=== PATIENT | male | born 1980 | race Hispanic/Latino ===

== ENCOUNTER 2017-05-10 07:53 | Emergency (ER) | payer BC, OTHER ==
[2017-05-10 08:00] VITALS: BP 146/66
[2017-05-10 08:24] LABS: Eosinophils % (Auto) 2.2 % (0.0-4.3); Hematocrit 46.9 % (35.5-45.6); Hemoglobin 16.1 gm/dl (11.8-15.2); Mean Corpuscular HGB Conc 34 % (32-34); Mean Corpuscular Hemoglobin 31 pg (28-32); Mean Corpuscular Volume 91 fl (84-94); Platelet Count 288 K/mm3 (140-440); Red Blood Count 5.18 M/mm3 (3.65-5.03); Red Cell Distribution Width 12.3 % (13.2-15.2); White Blood Count 6.5 K/mm3 (4.5-11.0)
[2017-05-10 08:33] LABS: Alanine Aminotransferase 43 units/L (7-56); Albumin 4.4 g/dL (3.9-5); Albumin/Globulin Ratio 1.6 %; Alkaline Phosphatase 73 units/L (35-129); Anion Gap 15 mmol/L; BUN/Creatinine Ratio 13.75; Blood Urea Nitrogen 11 mg/dL (9-20); Calcium 9.5 mg/dL (8.4-10.2); Carbon Dioxide 28 mmol/L (22-30); Chloride 103.7 mmol/L (98-107); Glucose 104 mg/dL (75-100); Potassium 4.2 mmol/L (3.6-5.0); Sodium 142 mmol/L (137-145); Total Protein 7.2 g/dL (6.3-8.2)
== END 2017-05-10 08:20 | disposition left against medical advice (07) ==
LOC: ED 07:53
DX: R53.83 Other fatigue (principal); Z53.21 Procedure and treatment not carried out due to patient leaving prior to being seen by health care provider
CPT/HCPCS: 36415; 80053; 85025